=== PATIENT | male | born 1995 | race Caucasian/White ===

== ENCOUNTER 2019-02-22 11:46 | Inpatient (IN) | payer MEDICAID ==
[~2019-02-22] VITALS: Ht 177.8 cm; Wt 161.0 kg
[2019-02-22 13:42] LABS: BASOPHILS % 0.6 % (0.0-2.0); EOSINOPHILS % 0.3 % (0.0-5.0); HEMATOCRIT. 46.7 % (42.0-52.0); HEMOGLOBIN. 15.8 g/dL (14.0-18.0); LYMPHOCYTES % 13.5 % (20.0-50.0); MEAN CORPUSCULAR HEMOGLOBIN 28.5 pg (28.0-32.0); MEAN CORPUSCULAR VOLUME 84.1 fL (80.0-94.0); MEAN PLATELET VOLUME 9.6 fl (7.4-10.4); MONOCYTES % 4.6 % (2.0-8.0); PLATELET 392 x1000/uL (130-400); RED BLOOD CELL COUNT 5.56 mill/uL (4.7-6.1); RED CELL DISTRIBUTION WIDTH 13.9 % (11.6-14.6)
[2019-02-22 13:48] LABS: PARTIAL THROMBOPLASTIN TIME 32.3 sec (23.4-31.0); PROTHROMBIN TIME 10.5 sec (9.6-11.0)
[2019-02-22] MEDS ORDERED: ASPIRIN 325MG EC TABLET PO ONE (14:15)
[2019-02-22 14:38] LABS: CHLORIDE 105 mEq/L (98-107)
[2019-02-22 14:40] LABS: *AMPHETAMINES SCREEN URINE NEGATIVE (NEGATIVE); *BARBITURATES SCREEN URINE NEGATIVE (NEGATIVE)
[2019-02-22 14:41] LABS: *BENZODIAZEPINES SCREEN URINE NEGATIVE (NEGATIVE); *COCAINE SCREEN URINE NEGATIVE (NEGATIVE); CANNABINOID URINE SCREEN PRESUMTIVE POSITIVE (NEGATIVE); METHADONE URINE SCREEN NEGATIVE (NEGATIVE); OPIATES URINE SCREEN NEGATIVE (NEGATIVE); PHENCYCLIDINE URINE SCREEN NEGATIVE (NEGATIVE)
[2019-02-22 16:30] VITALS: BP 160/70
[2019-02-22] MEDS ORDERED: CLONIDINE 0.1MG TABLET PO PRN (19:00)
[2019-02-22] MEDS ORDERED: HYDROCODONE/ACETAMINOPHEN 10/325MG TABLET PO PRN (19:00)
[2019-02-22] MEDS ORDERED: LORAZEPAM 2MG/ML CPJ IV PRN (19:30)
[2019-02-22] MEDS ORDERED: DOCUSATE SODIUM 100MG CAPSULE PO PRN (19:30)
[2019-02-22] MEDS ORDERED: ONDANSETRON HCL 4MG/2ML INJ IV PRN (19:30)
[2019-02-22] MEDS ORDERED: GUAIFENESIN 200MG/10ML SUGAR FREE UDC PO PRN (19:30)
[2019-02-22] MEDS ORDERED: ACETAMINOPHEN 325MG TABLET PO PRN (19:30)
[2019-02-22] MEDS ORDERED: NA PHOS,M-B/NA PHOS,DI-BA ENEMA 118ML PR PRN (19:30)
[2019-02-22] MEDS ORDERED: DIPHENHYDRAMINE 50MG/ML VIAL IV PRN (19:30)
[2019-02-22] MEDS ORDERED: MAGNESIUM/ALUMINUM HYDROXIDE/SIMETHICONE 30ML UDC PO PRN (19:30)
[2019-02-22] MEDS ORDERED: IPRATROPIUM/ALBUTEROL 0.5-3(2.5)MG/3ML NEB INH PRN (19:30)
[2019-02-22] MEDS ORDERED: MORPHINE SULFATE 2 MG/ML CPJ (NOT FOR IM USE) IV PRN (19:30)
[2019-02-22] MEDS ORDERED: HYDRALAZINE 20MG/ML VIAL IV PRN (19:30)
[2019-02-22 20:00] VITALS: BP 152/92
[2019-02-22] MEDS: ENOXAPARIN 40MG/0.4ML SYR SUBCUT SCH (20:59)
[2019-02-22] MEDS: SODIUM CHLORIDE 0.9% INJ 3ML FLUSH IVF SCH (21:00)
[2019-02-23] VITALS: BP 148/87
[2019-02-23 00:17] LABS: CREATINE KINASE 243 IU/L (39-308)
[2019-02-23 00:18] LABS: CREATINE KINASE MB FRACTION 1.9 ng/mL (0.5-3.6)
[2019-02-23 04:00] VITALS: BP 141/76
[2019-02-23] MEDS: SODIUM CHLORIDE 0.9% INJ 3ML FLUSH IVF SCH ×3 (05:49→21:40)
[2019-02-23 08:00] VITALS: BP 146/73
[2019-02-23] MEDS: ENOXAPARIN 40MG/0.4ML SYR SUBCUT SCH ×2 (08:28→21:39)
[2019-02-23 08:31] LABS: BASOPHILS % 0.3 % (0.0-2.0); EOSINOPHILS % 1.7 % (0.0-5.0); HEMATOCRIT. 43.3 % (42.0-52.0); HEMOGLOBIN. 14.8 g/dL (14.0-18.0); LYMPHOCYTES % 27.7 % (20.0-50.0); MEAN CORPUSCULAR HEMOGLOBIN 28.8 pg (28.0-32.0); MEAN CORPUSCULAR VOLUME 84.3 fL (80.0-94.0); MEAN PLATELET VOLUME 9.5 fl (7.4-10.4); NEUTROPHILS % 64.3 % (40.0-76.0); PLATELET 339 x1000/uL (130-400); RED BLOOD CELL COUNT 5.14 mill/uL (4.7-6.1); RED CELL DISTRIBUTION WIDTH 14.1 % (11.6-14.6)
[2019-02-23 08:45] LABS: CHLORIDE 105 mEq/L (98-107)
[2019-02-23 09:00] LABS: LDL CHOLESTEROL 102 mg/dL (5-100)
[2019-02-23 09:01] LABS: T4 FREE 2.11 ng/dL (0.76-1.46)
[2019-02-23 09:02] LABS: CREATINE KINASE 211 IU/L (39-308); CREATINE KINASE MB FRACTION 2.3 ng/mL (0.5-3.6)
[2019-02-23 09:05] LABS: HDL CHOLESTEROL 30 mg/dL (40-59)
[2019-02-23 20:00] VITALS: BP 133/70
[2019-02-24] VITALS: BP 138/76
[2019-02-24 04:00] VITALS: BP 151/85
[2019-02-24] MEDS: SODIUM CHLORIDE 0.9% INJ 3ML FLUSH IVF SCH ×2 (06:06→23:01)
[2019-02-24 08:00] VITALS: BP 132/80
[2019-02-24 09:43] LABS: CLARITY URINE CLEAR (CLEAR); COLOR URINE YELLOW (YELLOW); KETONES URINE NEGATIVE (NEGATIVE); LEUKOCYTE ESTERASE URINE NEGATIVE (NEGATIVE); NITRITE URINE NEGATIVE (NEGATIVE); OCCULT BLOOD URINE NEGATIVE (NEGATIVE); PH URINE 5.5 (4.5-8.0); PROTEIN URINE NEGATIVE (NEGATIVE); SPECIFIC GRAVITY URINE 1.021 (1.005-1.030); UROBILINOGEN URINE 0.2 E.U./dL (0.2-1.0)
[2019-02-24] MEDS: ENOXAPARIN 40MG/0.4ML SYR SUBCUT SCH ×2 (09:45→21:48)
[2019-02-24 12:00] VITALS: BP 133/79
[2019-02-24 16:00] VITALS: BP 137/82
[2019-02-24 20:00] VITALS: BP 123/71
[2019-02-25 00:20] VITALS: BP 139/67
[2019-02-25 04:00] VITALS: BP 145/77
[2019-02-25] MEDS: SODIUM CHLORIDE 0.9% INJ 3ML FLUSH IVF SCH ×3 (06:13→20:52)
[2019-02-25 08:00] VITALS: BP 178/91
[2019-02-25] MEDS: ENOXAPARIN 40MG/0.4ML SYR SUBCUT SCH ×2 (08:35→20:52)
[2019-02-25 12:00] VITALS: BP 148/74
[2019-02-25 16:00] VITALS: BP 127/70
[2019-02-25 20:00] VITALS: BP 138/75
[2019-02-26] VITALS: BP 134/84
[2019-02-26 04:00] VITALS: BP 149/86
[2019-02-26] MEDS: SODIUM CHLORIDE 0.9% INJ 3ML FLUSH IVF SCH ×3 (05:28→21:02)
[2019-02-26 08:00] VITALS: BP 116/65
[2019-02-26] MEDS: ENOXAPARIN 40MG/0.4ML SYR SUBCUT SCH ×2 (08:39→21:02)
[2019-02-26 12:00] VITALS: BP 175/77
[2019-02-26 16:00] VITALS: BP 176/79
[2019-02-26 20:00] VITALS: BP 144/73
[2019-02-27] VITALS: BP 120/78
[2019-02-27 04:00] VITALS: BP 148/80
[2019-02-27] MEDS: SODIUM CHLORIDE 0.9% INJ 3ML FLUSH IVF SCH ×3 (05:09→20:22)
[2019-02-27 08:00] VITALS: BP 148/64
[2019-02-27 08:06] LABS: BASOPHILS % 0.4 % (0.0-2.0); EOSINOPHILS % 2.8 % (0.0-5.0); HEMATOCRIT. 44.9 % (42.0-52.0); HEMOGLOBIN. 15.1 g/dL (14.0-18.0); LYMPHOCYTES % 22.7 % (20.0-50.0); MEAN CORPUSCULAR HEMOGLOBIN 28.6 pg (28.0-32.0); MEAN CORPUSCULAR VOLUME 84.7 fL (80.0-94.0); MEAN PLATELET VOLUME 9.7 fl (7.4-10.4); MONOCYTES % 6.1 % (2.0-8.0); PLATELET 309 x1000/uL (130-400)
[2019-02-27 08:15] LABS: CHLORIDE 103 mEq/L (98-107)
[2019-02-27] MEDS: ENOXAPARIN 40MG/0.4ML SYR SUBCUT SCH ×2 (08:30→20:22)
[2019-02-27 12:00] VITALS: BP 143/73
[2019-02-27 16:00] VITALS: BP 147/84
[2019-02-27 20:00] VITALS: BP 153/77
[2019-02-28] VITALS: BP 141/65
[2019-02-28 04:00] VITALS: BP 141/88
[2019-02-28] MEDS: SODIUM CHLORIDE 0.9% INJ 3ML FLUSH IVF SCH ×3 (05:46→22:07)
[2019-02-28 08:00] VITALS: BP 128/73
[2019-02-28] MEDS: ENOXAPARIN 40MG/0.4ML SYR SUBCUT SCH ×2 (09:39→22:07)
[2019-02-28 12:00] VITALS: BP 131/66
[2019-02-28 16:00] VITALS: BP 168/73
[2019-02-28 20:00] VITALS: BP_SYST 126; BP_SYST 158; BP_DIAS 104; BP_DIAS 45
[2019-03-01] VITALS: BP 125/69
[2019-03-01 04:00] VITALS: BP 137/74
[2019-03-01] MEDS: SODIUM CHLORIDE 0.9% INJ 3ML FLUSH IVF SCH ×2 (05:53→14:57)
[2019-03-01 08:00] VITALS: BP 142/79
[2019-03-01] MEDS: ENOXAPARIN 40MG/0.4ML SYR SUBCUT SCH (10:45)
[2019-03-01 12:00] VITALS: BP 139/74
[2019-03-01 16:22] VITALS: BP 134/74
== END 2019-03-01 17:28 | disposition home or self-care (01) | DRG 347 ==
LOC: ER 11:46 → 5WST 15:07 → EDBEDREQTM 15:10 → EDBEDREQ 15:10 → ENRESERV 15:48
PROVIDERS: ADMIT Internal Medicine; ATTEND Internal Medicine
DX: M48.07 Spinal stenosis, lumbosacral region (principal); E66.01 Morbid (severe) obesity due to excess calories; G83.14 Monoplegia of lower limb affecting left nondominant side; R03.0 Elevated blood-pressure reading, without diagnosis of hypertension; M25.78 Osteophyte, vertebrae; M47.9 Spondylosis, unspecified; Z68.43 Body mass index [BMI] 50.0-59.9, adult
CPT/HCPCS: 36415; 71045; 72128; 72131; 80048; 80061; 80305; 81003; 82550; 82553; 82962; 83036; 83880; 84439; 84443; 84484; 93005; 93970; 96372; 97162; 97530; 99285; J1650

== ENCOUNTER 2024-10-02 10:35 | Emergency (ER) | payer MEDICAID, MEDICARE ==
[~2024-10-02] VITALS: Ht 180.3 cm; Wt 134.0 kg
[2024-10-02 10:40] VITALS: TEMP 37.2; O2SAT 99
[2024-10-02 11:19] LABS: BASOPHILS % 0.6 % (0.0-2.0); EOSINOPHILS % 0.3 % (0.0-5.0); HEMATOCRIT. 45.8 % (42.0-52.0); HEMOGLOBIN. 15.2 g/dL (14.0-18.0); LYMPHOCYTES % 14.3 % (20.0-50.0); MEAN CORPUSCULAR HGB CONC 33.1 g/dL (31.0-37.0); MEAN CORPUSCULAR VOLUME 84.5 fL (80.0-94.0); MEAN PLATELET VOLUME 9.6 fl (7.4-10.4); MONOCYTES % 3.7 % (2.0-8.0); NEUTROPHILS % 81.1 % (40.0-76.0); PLATELET 348 x1000/uL (130-400); RED BLOOD CELL COUNT 5.42 mill/uL (4.7-6.1); RED CELL DISTRIBUTION WIDTH 13.5 % (11.6-14.6); WHITE BLOOD COUNT 10.3 x1000/uL (4.5-11.0)
[2024-10-02 11:28] VITALS: BP 152/92; PULSE 82; RESP 18
[2024-10-02] MEDS: IBUPROFEN 800MG TABLET PO ONE (11:28)
[2024-10-02] MEDS: HYDROCODONE/ACETAMINOPHEN 7.5/325MG TABLET PO ONE (11:28)
[2024-10-02 11:34] LABS: CHLORIDE 103 mEq/L (98-107); SODIUM 140 mEq/L (136-145)
[2024-10-02 11:35] LABS: CALCIUM 9.7 mg/dL (8.7-10.4); CARBON DIOXIDE 28 mEq/L (21-32)
[2024-10-02 11:40] LABS: CREATININE 0.9 mg/dL (0.6-1.3); GLUCOSE 109 mg/dL (70-105); UREA NITROGEN BLOOD 8 mg/dL (9-23)
[2024-10-02] MEDS ORDERED: TOPUD MT (14:46)
[2024-10-02] MEDS ORDERED: P50 MT (14:46)
[2024-10-02] MEDS ORDERED: IBUP-1525 MT (14:46)
== END 2024-10-02 15:04 | disposition home or self-care (01) ==
LOC: ER 10:35
DX: R20.2 Paresthesia of skin (principal); R20.0 Anesthesia of skin; F12.10 Cannabis abuse, uncomplicated; Z98.890 Other specified postprocedural states
CPT/HCPCS: 36415; 72131; 76870; 80048; 85025; 93976; 99284